=== PATIENT | female | born 1965 | race Caucasian/White ===

== ENCOUNTER 2016-09-11 21:06 | Emergency (ER) | payer MEDICAID ==
[~2016-09-11] VITALS: Ht 160 cm; Wt 73.0 kg
[2016-09-11 21:24] VITALS: Ht 160 cm; Wt 73.0 kg
[2016-09-11] MEDS ORDERED: HYDROmorphONE 1 MG/ML SYG IV STA (22:43)
[2016-09-11] MEDS ORDERED: ONDANSETRON 4 MG INJ IV STA (22:49)
[2016-09-11] MEDS ORDERED: LEVOFLOXACIN 500MG/D5W (PMX) 100 ML IVPB ONE (23:00)
[2016-09-11] MEDS ORDERED: SOD CHLORIDE 0.9% 2,260 ML IV ONE (23:00)
[2016-09-11 23:30] LABS: ADD SCAN DIFF NO
--- NOTE | 2016-09-11 23:30 | RADRPT ---
PROCEDURE: XR Chest. CLINICAL INDICATION: Possible sepsis. Chest pain. TECHNIQUE: Single frontal view of the chest was obtained COMPARISON: None FINDINGS: The heart and mediastinum are within normal limits. Left lung base atelectasis versus airspace disease, and this may represent left lung base pneumonia in setting of sepsis. Right lung is clear. There is no pleural effusion or pneumothorax. IMPRESSION: Left lung base atelectasis versus airspace disease may represent pneumonia in setting of sepsis. RPTAT: [facility] Physician Katerine Date Time Electronically viewed and signed by Physician Katerine on 09/11/2016 23:29 RS/
[2016-09-11 23:32] LABS: BASOPHILS % 0.2 % (0.0-2.0); EOSINOPHILS % 0.2 % (0.0-7.0); HEMATOCRIT 39.7 % (37.0-47.0); LYMPHOCYTES # 1.6 10^3/ul (0.8-2.9); LYMPHOCYTES % 12.1 % (15.0-51.0); MEAN CORPUSCULAR HEMOGLOBIN 30.4 pg (29.0-33.0); MEAN CORPUSCULAR HGB CONC 35.3 g/dl (32.0-37.0); MEAN CORPUSCULAR VOLUME 86.3 fl (82.0-101.0); MEAN PLATELET VOLUME 10.3 fl (7.4-10.4); MONOCYTE # 0.9 10^3/ul (0.3-0.9); MONOCYTES % 6.9 % (0.0-11.0); NEUTROPHIL # 10.7 10^3/ul (1.6-7.5); NEUTROPHILS % 80.2 % (39.0-77.0); PLATELET COUNT 286 10^3/UL (140-415); RED CELL DISTRIBUTION WIDTH 11.9 % (11.5-14.5); WHITE BLOOD COUNT 13.3 10^3/ul (4.8-10.8)
[2016-09-11 23:45] LABS: ADD UMIC YES; INR 0.95; PARTIAL THROMBOPLASTIN TIME 30.3 Sec (25.0-35.0); PROTIME 12.7 Sec (12.2-14.2); URINE BILIRUBIN (Dip) NEGATIVE (NEGATIVE); URINE BLOOD (Dip) NEGATIVE (NEGATIVE); URINE COLOR LT. YELLOW (YELLOW); URINE GLUCOSE (Dip) NEGATIVE (NEGATIVE); URINE KETONES (Dip) NEGATIVE (NEGATIVE); URINE LEUKOCYTE ESTERASE (Dip) NEGATIVE (NEGATIVE); URINE NITRITE (Dip) POSITIVE (NEGATIVE); URINE TOTAL PROTEIN (Dip) TRACE (NEGATIVE); URINE UROBILINOGEN (Dip) 1.0 E.U./dL (0.1-1.0)
[2016-09-11 23:54] LABS: ALBUMIN 4.6 g/dl (3.3-4.9); CHLORIDE 99 mmol/L (97-110)
[2016-09-11 23:55] LABS: BACTERIA,URINE MANY; POTASSIUM 3.7 mmol/L (3.5-5.1); SODIUM 137 mmol/L (135-144); SQUAMOUS EPITHELIAL CELL,UR FEW; URINE RBCS 0-2 /HPF (0)
--- NOTE | 2016-09-11 23:55 | ERD ---
ER Documentation Chief Complaint Date/Time DATE: 09/11/16 TIME: 23:46 Chief Complaint burning urination, fever, headache accu check 134 HPI This 51-year-old female presenting to the emergency department today with complaint of severe back pain, burning with urination, headache and body aches. Patient reports sudden onset of symptoms, started yesterday, she has fever, chills, nausea. Patient has complex medical history including cancer survivor, history of cervical and fallopian tube cancer with hysterectomy bilateral oophorectomy, history of double meniscectomy. Patient reports that since January 2016 she had her kidneys monitored on ultrasound originally suspected a cancerous mass which is a localized infection around her right kidney. Patient reports that her next ultrasound is in December. She has been asymptomatic until yesterday. Patient is crying in pain, 10 out of 10 on pain scale, shaking, temperature is 102.4, heart rate elevated tachycardic at 101 suspected pyelonephritis, urinary sepsis. Spoke to patient will be transferred to the main side of the emergency department. Orders started for septic workup. ROS All systems reviewed and are negative except as per history of present illness. Medications Home Meds Active Scripts Levofloxacin* (Levaquin*) 750 Mg Tablet, 750 MG PO DAILY for 10 Days, TAB Prov:SUZE,BETTY 09/12/16 Allergies Allergies: Coded Allergies: Penicillins (Verified Allergy, Unknown, 09/11/16) acetaminophen (Verified Allergy, Unknown, 09/11/16) morphine (Verified Allergy, Unknown, 09/11/16) prochlorperazine (Verified Allergy, Unknown, 09/11/16) promethazine (Verified Allergy, Unknown, 09/11/16) propoxyphene (Verified Allergy, Unknown, 09/11/16) PMhx/Soc History of Surgery: Yes Anesthesia Reaction: No Hx Neurological Disorder: No Hx Respiratory Disorders: No Hx Cardiac Disorders: No Hx Psychiatric Problems: No Hx Miscellaneous Medical Probl: Yes (CERVICAL SURGERY, S/P CHEMO THERAPY, DM) Hx Alcohol Use: No Hx Substance Use: No Hx Tobacco Use: No Smoking Status: Never smoker Physical Exam Vitals Vital Signs Date Time Temp Pulse Resp B/P Pulse Ox O2 Delivery O2 Flow Rate FiO2 09/11/16 23:57 101.2 87 28 128/66 97 Room Air 09/11/16 22:36 101.6 09/11/16 21:24 102.4 101 20 144/85 100 Temperature elevation, continues to be monitored treated with Tylenol. Physical Exam Const: Patient appears ill Head: Atraumatic Eyes: Normal Conjunctiva PERRLA, EOMI ENT: Normal External Ears, Nose and Mouth. Mucous membranes moist Neck: Full range of motion..~ No meningismus. Resp: Respirations clear, posterior lobes diminished, no rales or rhonchi auscultated Cardio: Regular rate and rhythm, no murmurs Abd: Abdomen is soft, pelvic tenderness, right CVA tenderness Skin: No petechiae or rashes Back: No midline or right flank pain Ext: No cyanosis, or edema Neur: Awake and alert Psych: Normal Mood and Affect Result Diagram: 09/11/165 09/11/165 Results 24 hrs Laboratory Tests Test 09/11/16 21:48 09/11/16 23:15 09/12/16 01:50 Bedside Glucose 134mg/dL White Blood Count 13.310^3/ul Red Blood Count 4.6010^6/ul Hemoglobin 14.0g/dl Hematocrit 39.7% Mean Corpuscular Volume 86.3fl Mean Corpuscular Hemoglobin 30.4pg Mean Corpuscular Hemoglobin Concent 35.3g/dl Red Cell Distribution Width 11.9% Platelet Count 99842^3/UL Mean Platelet Volume 10.3fl Neutrophils % 80.2% Lymphocytes % 12.1% Monocytes % 6.9% Eosinophils % 0.2% Basophils % 0.2% Nucleated Red Blood Cells % 0.0/100WBC Neutrophils # 10.710^3/ul Lymphocytes # 1.610^3/ul Monocytes # 0.910^3/ul Eosinophils # 0.010^3/ul Basophils # 0.010^3/ul Nucleated Red Blood Cells # 0.010^3/ul Prothrombin Time 12.7Sec Prothrombin Time Ratio 1.0 INR International Normalized Ratio 0.95 Activated Partial Thromboplast Time 30.3Sec Urine Color LT. YELLOW Urine Clarity HAZY Urine pH 7.5 Urine Specific [place] 1.015 Urine Ketones NEGATIVE Urine Nitrite POSITIVE Urine Bilirubin NEGATIVE Urine Urobilinogen 1.0 E.U./dL Urine Leukocyte Esterase NEGATIVE Urine Microscopic RBC 0-2/HPF Urine Microscopic WBC 0-2/HPF Urine Squamous Epithelial Cells FEW Urine Bacteria MANY Urine Hemoglobin NEGATIVE Urine Glucose NEGATIVE% Urine Total Protein TRACE Sodium Level 137mmol/L Potassium Level 3.7mmol/L Chloride Level 99mmol/L Carbon Dioxide Level 27mmol/L Anion Gap 15 Blood Urea Nitrogen 10mg/dl Creatinine 0.64mg/dl Glucose Level 159mg/dl Lactic Acid Level 2.0mmol/L 1.1mmol/L Calcium Level 9.5mg/dl Total Bilirubin 0.5mg/dl Direct Bilirubin 0.00mg/dl Indirect Bilirubin 0.5mg/dl Aspartate Amino Transf (AST/SGOT) 18IU/L Alanine Aminotransferase (ALT/SGPT) 22IU/L Alkaline Phosphatase 94IU/L Troponin I < 0.012ng/ml Total Protein 9.1g/dl Albumin 4.6g/dl Globulin 4.50g/dl Albumin/Globulin Ratio 1.02 Current Medications Medications (Trade) Dose Ordered Sig/Arnulfo Route PRN Reason Start Time Stop Time Status Last Admin Dose Admin Sodium Chloride 2,260 ml @ 2,260 mls/hr BOLUS X1 ONCE IV 09/11/16 23:00 09/11/16 23:59 DC 09/11/16 23:27 Levofloxacin/ Dextrose (Levaquin 500mg/ D5W 100 ml (Pmx)) 100 ml @ 100 mls/hr ONCE ONCE IVPB 09/11/16 23:00 09/11/16 23:59 DC 09/11/16 23:52 Hydromorphone HCl (Dilaudid) 0.5 mg ONCE STAT IV 09/11/16 22:43 09/11/16 22:49 DC 09/11/16 23:28 Ondansetron HCl 4 mg 4 mg ONCE STAT IV 09/11/16 22:49 09/11/16 22:50 DC 09/11/16 23:28 Levofloxacin/ Dextrose (Levaquin 250 Mg/ D5W 50 ml (Pmx)) 50 ml @ 50 mls/hr ONCE ONCE IVPB 09/12/16 01:00 09/12/16 01:59 DC 09/12/16 01:48 Ibuprofen (Motrin) 600 mg ONCE ONCE PO 09/12/16 01:00 09/12/16 01:01 DC 09/12/16 01:37 Diphenhydramine HCl (Benadryl) 25 mg ONCE ONCE IV 09/12/16 02:00 09/12/16 02:01 DC 09/12/16 01:48 Interpretation text CBC shows no evidence of hemorrhage WBCs elevated 13.3. Suggestive of infection. Chemistry shows no evidence of significant electrolyte abnormalities or renal insufficiency Liver function tests shows no evidence of acute biliary or hepatic dysfunction Coagulation study showed no concerning coagulpathy Lactic acid 2.0, repeated in 2 hours decreased to 1.1 not suggestive sepsis Cardiac biomarkers show no evidence of acute myocardial injury or coronary ischemia Urinalysis positive for nitrates, leukocytosis, suggestive of infection. Procedures/MDM This 51-year-old female presents to emergency department for dysuria, flank pain , fever, chills. Patient reports sudden onset of symptoms yesterday with worsening today. Patient is febrile, tachycardic, with advanced age, sepsis protocol was initiated. Patient has a complex medical history including cervical cancer, hysterectomy with removal of fallopian tubes, and bilateral mastectomy for breast cancer. Patient reports that she possibly has a right renal mass which is being followed on CAT scans routinely. Patient states next CAT scan is in December. This case was discussed with supervising physician treatment started, diagnostic testing, lab draws, blood cultures, fluid bolus, Levaquin initiated by nurse practitioner. Patient shows improvement in heart rate, temperature, and symptoms after interventions. Suspected pyelonephritis or urinary tract infection, abnormal laboratory values include elevated WBCs at 13.3 and a lactic acid of 2 on the first draw. Second draw decreased to 1.1. Patient chest x-ray reveals a left lower lobe pneumonia versus atelectasis. Patient remains in emergency department moved over to Main ED. nurse practitioner continues to follow patient, patient's vital signs, heart rate, and pain all continue to be monitored. Patient reports improvement after IV Levaquin, received Motrin, Dilaudid, and Benadryl for headache symptoms. I feel patient is appropriate for outpatient management with 750 mg p.o. Levaquin daily 10 days, and follow-up with primary care physician. Patient is happy not to be admitted. Strict return to emergency room precautions advised. Patient to return for any change in symptoms. Return for dysuria, fever, chills , back pain. Return for chest pain, shortness of breath. I feel the patient is stable for discharge at this time. I have discussed results, examination findings, the treatment plan with the patient and family present prior to discharge. Indications for emergent reevaluation, side effects of medication were also discussed. All questions were answered. Patient verbalizes understanding and agrees with plan of care. Departure Diagnosis: Primary Impression: Urinary tract infection Urinary tract infection type: site unspecified Hematuria presence: with hematuria Qualified Code: N39.0 - Urinary tract infection with hematuria, site unspecified Additional Impression: Pneumonia Pneumonia type: due to unspecified organism Laterality: left Lung location : lower lobe of lung Qualified Code: J18.1 - Pneumonia of left lower lobe due to infectious organism Condition: Stable Patient Instructions: Understanding Urinary Tract Infections (UTIs) Referrals: [facility] Additional Instructions: Thank you for for coming to [facility] for your care today. Please ask your nurse or provider if you have questions about your care today and do not leave until all your questions have been answered. Please use any medications given as directed and follow-up with your doctor (or the doctor you were referred to) in the next 2-3 days. If you do not have a primary care doctor you may follow up at the [facility] (listed below). You may also use motrin and tylenol as needed for fever and/or pain unless instructed otherwise by your provider or nurse. Indications for more urgent follow-up have been discussed, but you may return to the Emergency Department at ANY time for any worrisome or worsening symptoms. If you have abdominal pain, please know that no test or exam you received is perfect and you should follow up within 8 hours for continued pain. If you had any imaging studies today, such as an X-Ray or CT Scan, these studies will be reviewed later by a radiologist. You will be called if there are important findings that were not identified today, so make sure the contact information you provided at registration is correct. If you received any narcotic pain control medicine today, such as Vicodin, Morphine or Dilaudid, your coordination and judgment may be affected for a number of hours. Please do not drive or operate heavy machinery, and you may want someone to assist you at home. If you were given a prescription for narcotic medication, be aware that it is very addictive- use sparingly and only if necessary. BETTY ARCINIEGA Sep 11, 2016 23:55
[2016-09-11 23:57] LABS: ANION GAP 15 (8-16); CARBON DIOXIDE 27 mmol/L (21-31); CREATININE 0.64 mg/dl (0.44-1.00)
[2016-09-11 23:58] LABS: ALANINE AMINOTRANSFERASE 22 IU/L (13-69); ALBUMIN/GLOBULIN RATIO 1.02; ALKALINE PHOSPHATASE 94 IU/L (42-121); ASPARTATE AMINO TRANSFERASE 18 IU/L (15-46); BILIRUBIN,INDIRECT 0.5 mg/dl (0-1.1); BILIRUBIN,TOTAL 0.5 mg/dl (0.2-1.3); BLOOD UREA NITROGEN 10 mg/dl (7-20); CALCIUM 9.5 mg/dl (8.4-10.2); GLUCOSE 159 mg/dl (70-220); TOTAL PROTEIN 9.1 g/dl (6.1-8.1)
[2016-09-12 00:08] LABS: TROPONIN-I < 0.012 ng/ml (0.00-0.12)
[2016-09-12] MEDS ORDERED: LEVOFLOXACIN 250MG/D5W (PMX) 50 ML IVPB ONE (01:00)
[2016-09-12] MEDS ORDERED: IBUPROFEN 600 MG TAB PO ONE (01:00)
[2016-09-12] MEDS ORDERED: DIPHENHYDRAMINE 50 MG INJ IV ONE (02:00)
[2016-09-12] MEDS ORDERED: LEVO750T25 PO (02:44)
[2016-09-12 03:01] VITALS: BP 100/67; PULSE 82; RESP 23; TEMP 98.3
[2016-09-12] MEDS ORDERED: NOVO3I SC (18:51)
[2016-09-12] MEDS ORDERED: LISI10TA2 PO (18:51)
[2016-09-12] MEDS ORDERED: CHOLESTEROL (18:52)
[2016-09-12] MEDS ORDERED: SIMV5TAB31 PO (18:53)
== END 2016-09-12 03:12 | disposition home or self-care (01) ==
LOC: FTE 21:06 → E/R 09-12 03:12
DX: N39.0 Urinary tract infection, site not specified (principal); J18.1 Lobar pneumonia, unspecified organism; E11.9 Type 2 diabetes mellitus without complications; R07.9 Chest pain, unspecified; Z85.41 Personal history of malignant neoplasm of cervix uteri; Z85.44 Personal history of malignant neoplasm of other female genital organs
CPT/HCPCS: 36415; 71010; 80053; 81001; 82962; 83605; 84484; 85025; 85610; 85730; 87040; 87086; 93005; 96374; 96375; J1170; J1200; J1956; J2405; J7030; Z7502; Z7610; 81003

== ENCOUNTER 2016-09-12 14:05 | Observation (INO) | payer MEDICAID ==
[~2016-09-12] VITALS: Ht 165.1 cm; Wt 72.5 kg
[~2016-09-12 14:05] MED LIST: LEVO750T25 PO
[2016-09-12] MEDS ORDERED: CEFTRIAXONE 1 GM/50 ML (PMX) 50 ML IVPB STA (18:08)
[2016-09-12] MEDS ORDERED: SODIUM CHLORIDE 0.9% 1L BAG IV* STA (18:08)
[2016-09-12 18:20] LABS: ADD SCAN DIFF NO
[2016-09-12 18:23] LABS: BASOPHILS % 0.1 % (0.0-2.0); HEMATOCRIT 35.5 % (37.0-47.0); HEMOGLOBIN 12.4 g/dl (12.0-16.0); LYMPHOCYTES % 10.9 % (15.0-51.0); MEAN CORPUSCULAR HEMOGLOBIN 30.4 pg (29.0-33.0); MEAN CORPUSCULAR HGB CONC 34.9 g/dl (32.0-37.0); MEAN PLATELET VOLUME 10.3 fl (7.4-10.4); MONOCYTE # 0.6 10^3/ul (0.3-0.9); MONOCYTES % 6.7 % (0.0-11.0); NEUTROPHIL # 7.5 10^3/ul (1.6-7.5); PLATELET COUNT 224 10^3/UL (140-415); RED BLOOD COUNT 4.08 10^6/ul (4.20-5.40); RED CELL DISTRIBUTION WIDTH 11.8 % (11.5-14.5); WHITE BLOOD COUNT 9.1 10^3/ul (4.8-10.8)
[2016-09-12 18:32] LABS: ALBUMIN 4.1 g/dl (3.3-4.9); CHLORIDE 97 mmol/L (97-110)
[2016-09-12 18:33] LABS: INR 1.05; POTASSIUM 3.8 mmol/L (3.5-5.1); PROTIME 13.7 Sec (12.2-14.2); PT RATIO 1.1; SODIUM 135 mmol/L (135-144)
[2016-09-12 18:35] LABS: ANION GAP 15 (8-16); BILIRUBIN,INDIRECT 0.6 mg/dl (0-1.1); BILIRUBIN,TOTAL 0.6 mg/dl (0.2-1.3); CARBON DIOXIDE 27 mmol/L (21-31); CREATININE 0.75 mg/dl (0.44-1.00)
[2016-09-12 18:36] LABS: ALANINE AMINOTRANSFERASE 20 IU/L (13-69); ALBUMIN/GLOBULIN RATIO 0.93; ALKALINE PHOSPHATASE 74 IU/L (42-121); ASPARTATE AMINO TRANSFERASE 15 IU/L (15-46); BLOOD UREA NITROGEN 10 mg/dl (7-20); CALCIUM 9.1 mg/dl (8.4-10.2); GLUCOSE 227 mg/dl (70-220); PARTIAL THROMBOPLASTIN TIME 29.9 Sec (25.0-35.0); TOTAL PROTEIN 8.5 g/dl (6.1-8.1)
[2016-09-12] MEDS ORDERED: NOVO3I SC (18:51)
[2016-09-12] MEDS ORDERED: LISI10TA2 PO (18:51)
[2016-09-12] MEDS ORDERED: CHOLESTEROL (18:52)
[2016-09-12] MEDS ORDERED: SIMV5TAB31 PO (18:53)
[2016-09-12 18:55] LABS: TROPONIN-I < 0.012 ng/ml (0.00-0.12)
--- NOTE | 2016-09-12 19:03 | RADRPT ---
PROCEDURE: XR Chest. CLINICAL INDICATION: Possible sepsis. TECHNIQUE: Single frontal view of the chest was obtained COMPARISON: Chest x-ray 09/11/2016. FINDINGS: The soft tissues are normal. The bony elements are normal. The heart, cardiomediastinal silhouette and hilar structures are normal. The pulmonary vasculature is normal. There is a left-sided aorta. The lungs are clear. The costophrenic angles are normal. IMPRESSION: 1. There is no evidence of active cardiopulmonary disease. 2. Resolution of the left lower lobe atelectasis identified on 09/11/2016. RPTAT:AAJJ Physician Fiona Date Time Electronically viewed and signed by Grant Lara Physician on 09/12/2016 19:03 /
[2016-09-12] MEDS ORDERED: HYDROmorphONE 1 MG/ML SYG IV STA (20:06)
[2016-09-12 20:48] LABS: ADD UMIC NO; URINE BILIRUBIN (Dip) NEGATIVE (NEGATIVE); URINE BLOOD (Dip) NEGATIVE (NEGATIVE); URINE COLOR LT. YELLOW (YELLOW); URINE GLUCOSE (Dip) NEGATIVE (NEGATIVE); URINE KETONES (Dip) NEGATIVE (NEGATIVE); URINE LEUKOCYTE ESTERASE (Dip) NEGATIVE (NEGATIVE); URINE NITRITE (Dip) NEGATIVE (NEGATIVE); URINE TOTAL PROTEIN (Dip) NEGATIVE (NEGATIVE); URINE UROBILINOGEN (Dip) 1.0 E.U./dL (0.1-1.0)
[2016-09-12 21:00] VITALS: TEMP 102.4
[2016-09-12] MEDS ORDERED: ONDANSETRON 4 MG INJ IV PRN (21:00)
--- NOTE | 2016-09-12 21:13 | RADRPT ---
PROCEDURE: CT Abdomen and Pelvis without contrast CLINICAL INDICATION: Evaluate for perinephric abscess TECHNIQUE: Transaxial images were obtained through the abdomen and pelvis on a multi-slice scanner without the intravenous contrast administration. No oral contrast had previously been given. Sagit farheen and coronal re-formations were subsequently reconstructed. One or more of the following dose reduction techniques were used: - Automated exposure control. - Adjustment of the mA and/or kV according to patient size. - Use of iterative reconstruction technique. Radiation dose: CTDIvol = 14.47 mGy; DLP = 829.03 mGy-cm. COMPARISON: No prior studies are available for comparison. FINDINGS: Lung bases: Ground-glass infiltrates are seen within the lower lobes to a greater extent on the left than the right. No effusion is identified. Liver: The liver is enlarged but no focal lesion is identified. Gallbladder: The wall is not thickened. No radiopaque stones are identified. Bile ducts: The common hepatic duct is dilated measuring 8.4 mm in diameter. This tapers to a marci l through the common bile duct. Pancreas: Appears normal with no mass or inflammation evident. Spleen: Normal in size with no focal lesion. Adrenals: Normal with no mass identified. Kidneys, ureters and bladder: The kidneys are normal in size and there is no mass, pathological calc ification, or hydronephrosis evident. There is no perinephric stranding. The ureters are normal in c aliber and no ureteroliths are identified. The bladder appears unremarkable. Reproductive organs: The uterus is absent and no adnexal masses evident. Phleboliths are seen in th e pelvis. Stomach and bowel: The stomach appears unremarkable. The small bowel pattern reflects an ileus. The re is no evidence of bowel obstruction. Substantial stool seen within the colon. Appendix: An unremarkable appearing vermiform appendix is tentatively identified. Peritoneum: No free intraperitoneal fluid or air is identified. Multiple lucio are seen along the anterior abdominal wall extending into the pelvis. Aorta: Normal in caliber with no aneurysmal dilatation. IVC: Unremarkable. Lymph nodes: A few shoddy retroperitoneal nodes are evident. Osseous structures: Diffuse degenerative spine changes are noted with loss of disk height at L4-L5 w ith central 4 mm disk protrusion at this level. IMPRESSION: 1. There is no evidence of cholelithiasis but the common hepatic duct is mildly dilated to 8.4 mm w ith the common bile duct tapered a normal through the head of the pancreas. No pancreatic mass or i nflammation is identified. 2. The small bowel gas pattern reflects an ileus and substantial stool is seen within the colon wit hout evidence of bowel obstruction or inflammation. A normal vermiform appendix is tentatively iden tified. 3. There is no evidence of urinary outflow obstruction and no pararenal abscess is identified. The re is no ureterolithiasis and the bladder appears unremarkable. 4. Hepatomegaly with no focal lesion. 5. Multiple surgical lucio are seen along the anterior abdominal and pelvic wall. The 6. Degenerative disk and endplate changes noted at L4-L5 with a 4 mm central posterior disk protrus ion. More diffuse degenerative endplate changes are noted. Physician Augusto Date Time Electronically viewed and signed by Physician Augusto on 09/12/2016 21:12 /
[2016-09-12] MEDS ORDERED: ACETAMINOPHEN 500 MG TAB PO STA (22:04)
[2016-09-12 23:17] VITALS: BP 118/58; RESP 16
[2016-09-12 23:19] VITALS: Ht 165.1 cm; Wt 72.5 kg
[2016-09-13] MEDS ORDERED: GLUCAGON 1 MG INJ IM PRN
[2016-09-13] MEDS ORDERED: DEXTROSE 50% 50 ML SYRINGE IV PRN ×2
[2016-09-13] MEDS ORDERED: GLUCOSE GEL 15 GRAM TUBE PO PRN ×2
[2016-09-13] MEDS ORDERED: ACETAMINOPHEN 325 MG TAB PO PRN
[2016-09-13] MEDS ORDERED: GLUCOSE GEL 15 GRAM TUBE BUCCAL PRN
[2016-09-13] MEDS ORDERED: ONDANSETRON 4 MG INJ IV PRN
[2016-09-13] MEDS ORDERED: traMADol 50 MG TAB PO PRN (00:30)
--- NOTE | 2016-09-13 00:30 | ERA ---
ER Documentation Chief Complaint Date/Time DATE: 09/13/16 TIME: 00:24 Chief Complaint FLANK PAIN X3 DAYS WORSE TODAY. SEEN IN ED YESTERDAY. TAKING ABX. HPI 51-year-old female with a history of diabetes, breast cancer status post bilateral mastectomy and cervical cancer status post partial hysterectomy presenting with left flank pain. The patient was seen here yesterday for the same complaint. She has been febrile since yesterday with left flank pain and dysuria. She was seen here in the ED yesterday and discharged with antibiotics. She states that her symptoms are worsening now and she has nausea and vomiting that is new. She continues to have dysuria and fevers with a T- max of 102. She denies any chest pain, shortness of breath, abdominal pain, neck stiffness or pain. She states that her primary care doctor is Dr. Castanon, who told her that she had an abscess or cyst around her kidneys on her last CT scan. Her doctor is currently out of town. ROS All systems reviewed and are negative except as per history of present illness. Medications Home Meds Active Scripts Levofloxacin* (Levaquin*) 750 Mg Tablet, 750 MG PO DAILY for 10 Days, TAB Prov:SUZE,BETTY 09/12/16 Reported Medications Simvastatin* (Zocor*) Unknown Strength Tablet, 1 TAB PO QAM, #30 TAB 09/12/16 Lisinopril* (Lisinopril*) 10 Mg Tablet, 10 MG PO DAILY, #30 TAB 09/12/16 Insulin Aspart* (Novolog Insulin Pen*) 100 Unit/Ml Soln, 30 UNIT SC WITH BREAKFAST DINNE, EA 09/12/16 Discontinued Reported Medications [Cholesterol] No Conflict Check 09/12/16 Allergies Allergies: Coded Allergies: Penicillins (Verified Allergy, Unknown, 09/12/16) ibuprofen (Unverified Allergy, Unknown, 09/12/16) morphine (Verified Allergy, Unknown, 09/12/16) prochlorperazine (Verified Allergy, Unknown, 09/12/16) promethazine (Verified Allergy, Unknown, 09/12/16) propoxyphene (Verified Allergy, Unknown, 09/12/16) PMhx/Soc History of Surgery: Yes (PARTIAL HYSTERECTOMY AND CERVICAL SX DUE TO CANCER, BUNION SX,SHOULDER SX ) Anesthesia Reaction: No Hx Neurological Disorder: No Hx Respiratory Disorders: No Hx Cardiac Disorders: Yes (HTN,HYPERCHOLESTEROL) Hx Psychiatric Problems: No Hx Miscellaneous Medical Probl: Yes (HX MRSA 2008, THYPHOID FEVER 2001) Hx Alcohol Use: No Hx Substance Use: No Hx Tobacco Use: No Smoking Status: Never smoker FmHx Family History: No coronary disease Physical Exam Vitals Vital Signs Date Time Temp Pulse Resp B/P Pulse Ox O2 Delivery O2 Flow Rate FiO2 09/12/16 21:00 102.4 92 16 133/72 99 Room Air 09/12/16 18:53 100.0 09/12/16 18:11 100.2 99 16 148/70 99 Room Air 09/12/16 14:28 102.3 100 16 134/73 100 Physical Exam Const: Sickly appearing, nontoxic, distress secondary to pain Head: Atraumatic Eyes: Normal Conjunctiva ENT: Normal External Ears, Nose and Mouth. Neck: Full range of motion..~ No meningismus. Resp: Clear to auscultation bilaterally Cardio: Regular rate and rhythm, no murmurs Abd: Soft, non tender, non distended. Normal bowel sounds Skin: No petechiae or rashes Back: Left CVA tenderness noted Ext: No cyanosis, or edema Neur: Awake and alert Psych: Normal Mood and Affect Result Diagram: 09/12/16 1805 09/12/16 180 Results 24 hrs Laboratory Tests Test 09/12/16 18:05 09/12/16 20:00 09/12/16 20:31 White Blood Count 9.110^3/ul Red Blood Count 4.0810^6/ul Hemoglobin 12.4g/dl Hematocrit 35.5% Mean Corpuscular Volume 87.0fl Mean Corpuscular Hemoglobin 30.4pg Mean Corpuscular Hemoglobin Concent 34.9g/dl Red Cell Distribution Width 11.8% Platelet Count 99437^3/UL Mean Platelet Volume 10.3fl Neutrophils % 82.0% Lymphocytes % 10.9% Monocytes % 6.7% Eosinophils % 0.0% Basophils % 0.1% Nucleated Red Blood Cells % 0.0/100WBC Neutrophils # 7.510^3/ul Lymphocytes # 1.010^3/ul Monocytes # 0.610^3/ul Eosinophils # 0.010^3/ul Basophils # 0.010^3/ul Nucleated Red Blood Cells # 0.010^3/ul Prothrombin Time 13.7Sec Prothrombin Time Ratio 1.1 INR International Normalized Ratio 1.05 Activated Partial Thromboplast Time 29.9Sec Sodium Level 135mmol/L Potassium Level 3.8mmol/L Chloride Level 97mmol/L Carbon Dioxide Level 27mmol/L Anion Gap 15 Blood Urea Nitrogen 10mg/dl Creatinine 0.75mg/dl Glucose Level 227mg/dl Lactic Acid Level 1.8mmol/L 1.7mmol/L Calcium Level 9.1mg/dl Total Bilirubin 0.6mg/dl Direct Bilirubin 0.00mg/dl Indirect Bilirubin 0.6mg/dl Aspartate Amino Transf (AST/SGOT) 15IU/L Alanine Aminotransferase (ALT/SGPT) 20IU/L Alkaline Phosphatase 74IU/L Troponin I < 0.012ng/ml Total Protein 8.5g/dl Albumin 4.1g/dl Globulin 4.40g/dl Albumin/Globulin Ratio 0.93 Serum HCG, Qualitative NEGATIVE Urine Color LT. YELLOW Urine Clarity CLEAR Urine pH 6.0 Urine Specific [place] <=1.005 Urine Ketones NEGATIVE Urine Nitrite NEGATIVE Urine Bilirubin NEGATIVE Urine Urobilinogen 1.0 E.U./dL Urine Leukocyte Esterase NEGATIVE Urine Hemoglobin NEGATIVE Urine Glucose NEGATIVE% Urine Total Protein NEGATIVE Current Medications Medications (Trade) Dose Ordered Sig/Arnulfo Route PRN Reason Start Time Stop Time Status Last Admin Dose Admin Sodium Chloride 2250 ml 2,250 ml BOLUS OVER 2 HOURS STAT IV* 09/12/16 18:08 09/12/16 18:11 DC 09/12/16 18:20 Ceftriaxone Sodium (Rocephin) 50 ml @ 100 mls/hr ONCE STAT IVPB 09/12/16 18:08 09/12/16 18:37 DC 09/12/16 18:20 Hydromorphone HCl (Dilaudid) 1 mg ONCE STAT IV 09/12/16 20:06 09/12/16 20:08 DC 09/12/16 20:13 Ondansetron HCl (Zofran Inj) 4 mg BRIDGE ORDER PRN IV NAUSEA AND/OR VOMITING 09/12/16 21:00 09/13/16 20:59 Procedures/MDM EMERGENT LABS AND DIAGNOSTIC STUDIES: Lab Results above were reviewed and interpreted by me. No significant abnormalities on CBC and CMP, lactate within normal limits Reviewed preliminary results of urine culture from yesterday, shows greater than 100,000 gram-negative rods 12-lead EKG was interpreted by Hannah Ye MD: Normal Sinus Rhythm with ventricular rate of 95 beats per minute Normal axis Normal intervals No acute ST or T wave changes suggestive of acute ischemia or STEMI. Radiology Results as interpreted by Radiology below were reviewed by Kash Ye MD: Chest x-ray: IMPRESSION: 1. There is no evidence of active cardiopulmonary disease. 2. Resolution of the left lower lobe atelectasis identified on 09/11/2016. RPTAT:AAJJ Grant Lara Physician Date Time Electronically viewed and signed by Grant Lara Physician on 09/12/2016 19:03 CT abdomen and pelvis: IMPRESSION: 1. There is no evidence of cholelithiasis but the common hepatic duct is mildly dilated to 8.4 mm with the common bile duct tapered a normal through the head of the pancreas. No pancreatic mass or inflammation is identified. 2. The small bowel gas pattern reflects an ileus and substantial stool is seen within the colon without evidence of bowel obstruction or inflammation. A normal vermiform appendix is tentatively identified. 3. There is no evidence of urinary outflow obstruction and no pararenal abscess is identified. There is no ureterolithiasis and the bladder appears unremarkable. 4. Hepatomegaly with no focal lesion. 5. Multiple surgical lucio are seen along the anterior abdominal and pelvic wall. The 6. Degenerative disk and endplate changes noted at L4-L5 with a 4 mm central posterior disk protrusion. More diffuse degenerative endplate changes are noted. R Aparna, Physician Date Time Electronically viewed and signed by Physician Augusto on 09/12/2016 21:12 Initial Nursing notes reviewed. Previous Medical Records requested via the Electronic Health Record. EMERGENCY DEPARTMENT COURSE / MEDICAL DECISION MAKING: Patient is presenting with symptoms consistent with pyelonephritis. Her vitals were notable for fever and tachycardia. She is not very well appearing on exam and failing outpatient treatment for her pyelonephritis. Ceftriaxone IV and IV fluids were given. She was treated for her pain with IV pain medications with some relief. Patient's infectious symptoms have not stabilized and the patient is at risk of rapid decompensation. The patient will be admitted for careful hydration, antibiotic therapy, and infectious source control. Severe Sepsis Assessment: Infectious Source: pyleonephritis End organ damage indicated by: No evidence of endorgan injury Severe Sepsis Managment: Blood Cultures X 2 before broad spectrum antibiotics initiated within 3 hours of recognition. 30 ml/kg NS bolus Completed Initial Lactate: Within normal limits Repeat Lactate not indicated as initial < 2.0 Accepting Care Team: Current data and ongoing care discussed. Time: Time of admission Primary Provider: Emma Consulting: none Outstanding Data: Blood and urine cultures Departure Diagnosis: Primary Impression: Sepsis Qualified Code: A41.9 - Sepsis, due to unspecified organism Additional Impression: Pyelonephritis Condition: APRIL Wood MD Sep 13, 2016 00:30
[2016-09-13] MEDS ORDERED: LEVOFLOXACIN 750MG/D5W (PMX) 150 ML IVPB SCH (01:00)
[2016-09-13] MEDS ORDERED: INSULIN GLARGINE [LANtus] 3 ML PEN SC SCH ×2 (01:00→21:00)
[2016-09-13] MEDS ORDERED: ACCU-CHEK XX SCH ×2 (02:00)
[2016-09-13] MEDS: IMIPENEM-CILAST 500MG IV (PMX) 100 ML IVPB SCH ×3 (02:33→12:33)
[2016-09-13] MEDS ORDERED: DIPHENHYDRAMINE 50 MG INJ IV ONE (04:00)
[2016-09-13] MEDS ORDERED: ONDANSETRON 4 MG INJ IV ONE (04:00)
[2016-09-13] MEDS ORDERED: ACETAMINOPHEN 1000MG/100ML IV 100 ML IVPB ONE (04:00)
[2016-09-13 05:38] LABS: ADD SCAN DIFF NO
[2016-09-13 05:45] LABS: BASOPHILS % 0.1 % (0.0-2.0); HEMATOCRIT 30.2 % (37.0-47.0); HEMOGLOBIN 10.6 g/dl (12.0-16.0); LYMPHOCYTES # 0.9 10^3/ul (0.8-2.9); LYMPHOCYTES % 10.2 % (15.0-51.0); MEAN CORPUSCULAR HGB CONC 35.1 g/dl (32.0-37.0); MEAN CORPUSCULAR VOLUME 85.6 fl (82.0-101.0); MEAN PLATELET VOLUME 10.7 fl (7.4-10.4); MONOCYTE # 0.8 10^3/ul (0.3-0.9); MONOCYTES % 8.2 % (0.0-11.0); NEUTROPHIL # 7.4 10^3/ul (1.6-7.5); PLATELET COUNT 174 10^3/UL (140-415); RED BLOOD COUNT 3.53 10^6/ul (4.20-5.40); RED CELL DISTRIBUTION WIDTH 11.7 % (11.5-14.5); WHITE BLOOD COUNT 9.2 10^3/ul (4.8-10.8)
[2016-09-13 06:05] LABS: ALBUMIN 3.2 g/dl (3.3-4.9)
[2016-09-13 06:06] LABS: POTASSIUM 3.6 mmol/L (3.5-5.1)
[2016-09-13 06:07] LABS: CREATININE 0.63 mg/dl (0.44-1.00)
[2016-09-13 06:08] LABS: ALBUMIN/GLOBULIN RATIO 0.91; BILIRUBIN,INDIRECT 0.4 mg/dl (0-1.1); BILIRUBIN,TOTAL 0.4 mg/dl (0.2-1.3); CALCIUM 7.9 mg/dl (8.4-10.2); TOTAL PROTEIN 6.7 g/dl (6.1-8.1)
[2016-09-13 06:09] LABS: MAGNESIUM 1.6 mg/dl (1.7-2.5)
[2016-09-13 08:00] VITALS: BP 97/59; PULSE 65; RESP 18
--- NOTE | 2016-09-13 08:27 | HP ---
DATE OF ADMISSION: 09/12/2016 TIME SEEN: 2330 CHIEF COMPLAINT: Left flank pain and fever. HISTORY OF PRESENT ILLNESS: The patient is a 51-year-old female with a history of breast cancer sta tus post mastectomy, cervical cancer status post partial hysterectomy, hypertension, dyslipidemia, d iabetes who presented to the emergency department with left flank pain and fever. She also reported dysuria. Symptoms have been progressively getting worse over the past 2 days. When she presented to the ER, she was febrile with a temperature of 102.3, tachycardia with a heart rate of 100. CT abdomen and pelvis was done and it showed no cholelithiasis, no evidence of urinary outflow obstruction, no perirenal abscess, no ureterolithiasis. Noted was a small bowel gas patter n, reflects ileus. The patient stated that she has been having a renal ultrasound periodically to e valuate "infection in her kidney." She said on her last CT scan, she was told that she had an absce ss or cyst around her kidney. Earlier when she came to the ER the patient was crying with pain in h er flank area which has gotten better since initial presentation. REVIEW OF SYSTEMS: A 12-point review was performed and is negative except as mentioned in the HPI. PAST MEDICAL HISTORY: As per HPI. PAST SURGICAL HISTORY: As per HPI including shoulder surgery. ALLERGIES 1. PENICILLIN. 2. IBUPROFEN. 3. MORPHINE. 4. PROCHLORPERAZINE. 5. PROMETHAZINE. 6. PROPOXYPHENE. HOME MEDICATIONS: 1. Levaquin. 2. Lisinopril. 3. Zocor. 4. Insulin. PHYSICAL EXAMINATION: VITAL SIGNS: Blood pressure 118/58, heart rate 87, respiratory rate 16, temperature 99.5, oxygen sa turation 97% on room air. GENERAL: The patient in mild distress due to left flank pain. She is, however, answering questions appropriately. HEENT: No obvious head deformity. Pupils are reactive to light. Extraocular muscles intact. CARDIOVASCULAR: Slightly tachycardic with regular rhythm. LUNGS: Clear. ABDOMEN: Soft. There is tenderness in the left flank area. No rigidity, no rebound tenderness. EXTREMITIES: No edema. LABORATORY: Glucose 227. Otherwise, CBC and CMP are within normal limits. IMAGING: CT abdomen and pelvis with results as mentioned in the HPI. Chest x-ray shows no evidence of active cardiopulmonary disease. IMPRESSION: 1. Sepsis as evidenced by tachycardia and fever, most likely secondary to pyelonephritis. 2. Pyelonephritis. 3. History of breast cancer status post mastectomy. 4. History of cervical cancer status post partial gastrectomy. 5. Hypertension. 6. Hyperlipidemia 7. Diabetes. She will be placed on antibiotics. Note that she is ALLERGIC TO PENICILLIN. Actually while I am di ctating this, a report just came back saying that urine collected in the ER shows a gram-negative ro d. We will follow up on speciation and sensitivity. A repeat urine culture along with a blood cult ure will be done. We will provide pain medication and antiemetics as needed. As far as her history of cancer is concerned, she will follow up as an outpatient with her doctors. For her diabetes, heather galdamez will be placed on insulin. Further workup and management per clinical course. Dictated By: RY HDEZ/DEAN Conf#: [id number] DID#: [id number]
[2016-09-13] MEDS: INSULIN ASPART [NOVOLOG] 3 ML PEN SC SCH ×2 (08:42→12:17)
[2016-09-13] MEDS ORDERED: HEPARIN 5,000 UNIT/0.5 ML VIAL SC SCH (09:00)
--- NOTE | 2016-09-13 11:23 | PDOCDIS ---
Discharge Instructions CONDITION Patient Condition: Good HOME CARE INSTRUCTIONS: Special Diet: DIABETIC ACTIVITY: Activity Restrictions: No Restrictions FOLLOW UP/APPOINTMENTS Appointments F/U WITH YOUR PCP IN 1-2 WEEKS DERECK ECHOLS Sep 13, 2016 11:23
[2016-09-13] MEDS ORDERED: MAGNESIUM OXIDE 400 MG TAB PO ONE (11:30)
--- NOTE | 2016-09-13 13:40 | DS ---
DATE OF ADMISSION: 09/12/2016 DATE OF DISCHARGE: 09/13/2016 DISCHARGE DIAGNOSES: 1. Sepsis, possibly secondary to gastroenteritis versus urinary tract infection, now resolved. Con tinue home Levaquin. 2. History of breast cancer status post mastectomy, no acute issues. 3. History of cervical cancer. No other acute issues. 4. Hypertension, stable. 5. Dyslipidemia, stable. 6. Diabetes. Continue home medications. HOSPITAL COURSE: The patient is a 51-year-old female with history of breast cancer status post mast ectomy, cervical cancer status post partial hysterectomy, hypertension, dyslipidemia, and diabetes w ho presented with left flank pain and fever. She also reported dysuria. The patient also had abdom inal pain present on arrival. The patient had abdominal and pelvic CT that showed no cholelithiasis . The patient's bowel gas pattern reflects possible ileus. ____ stool was noted without any eviden ce of bowel obstruction or inflammation. There was no evidence of any urinary flow obstruction on t he CT. There was also hepatomegaly. The patient's abdominal pain did resolve. She was passing gas . She had no acute issues. Her UA was negative for any infection. Urine culture is negative after 24 hours. The patient was asymptomatic on the day of discharge. She had no acute complaints and v itals, labs, physical exam were stable. The patient's questions were answered. CONDITION ON DISCHARGE: Stable. DISPOSITION: To home. MEDICATIONS: The patient can continue her usual home medications. FOLLOWUP: The patient is to follow up with PCP in 1 to 2 weeks. Greater than 30 minutes was spent coordinating discharge of patient. Dictated By: DERECK ECHOLS MD BS/DEAN Conf#: [id number] DID#: [id number]
[2016-09-13] MEDS ORDERED: ATORVASTATIN 20 MG TAB PO SCH (21:00)
== END 2016-09-13 16:20 | disposition home or self-care (01) ==
LOC: E/R 14:05 → MS2 21:01
PROVIDERS: ADMIT Internal Medicine; ATTEND Internal Medicine
DX: A41.9 Sepsis, unspecified organism (principal); N12 Tubulo-interstitial nephritis, not specified as acute or chronic; I10 Essential (primary) hypertension; E78.00 Pure hypercholesterolemia, unspecified; E78.5 Hyperlipidemia, unspecified; E11.9 Type 2 diabetes mellitus without complications; Z79.4 Long term (current) use of insulin; Z86.14 Personal history of Methicillin resistant Staphylococcus aureus infection; Z85.3 Personal history of malignant neoplasm of breast; Z85.41 Personal history of malignant neoplasm of cervix uteri; Z88.0 Allergy status to penicillin; Z88.6 Allergy status to analgesic agent; Z88.8 Allergy status to other drugs, medicaments and biological substances
CPT/HCPCS: 71010; 74176; 80053; 81003; 82962; 83036; 83605; 83735; 84100; 84484; 84703; 85025; 85610; 85730; 87040; 87086; 93005; 96365; 96366; 96372; 96374; 96375; 96376; J0131; J0696; J0743; J1170; J1200; J1644; J1815; J1956; J2405; J7030; Z7500; Z7502; Z7610; G0378